=== PATIENT | female | born 1935 | race Caucasian/White ===

== ENCOUNTER 2017-08-19 09:28 | Emergency (ER) | payer BC ==
--- NOTE | 2017-08-19 09:45 | EDM.PDOC ---
ED HPI GENERAL MEDICAL PROBLEM - General Chief Complaint: Cardiovascular Problem Stated Complaint: BP HIGH Time Seen by Provider: 08/19/17 09:45 Source of Information: Reports: Patient History Limitations: Reports: No Limitations - History of Present Illness INITIAL COMMENTS - FREE TEXT/NARRATIVE: History of present illness: []Patient had diarrhea 2 nights ago into yesterday without fevers or vomiting. 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 A coworker took her blood pressure and she was found to be hypertensive. She was told to come to the ER to be evaluated. She states her dizziness was lightheaded and brief and has not recurred. She denies any headache, visual changes, weakness or numbness or tingling. Review of systems: As per history of present illness and below otherwise all systems reviewed and negative. Past medical history: As per history of present illness and as reviewed below otherwise noncontributory. Surgical history: As per history of present illness and as reviewed below otherwise noncontributory. Social history: No reported history of drug or alcohol abuse. Family history: As per history of present illness and as reviewed below otherwise noncontributory. Physical exam: General: Well developed, well nourished in NAD HEENT: Atraumatic, normocephalic, pupils reactive, negative for conjunctival pallor or scleral icterus, mucous membranes moist, throat clear, neck supple, nontender, trachea midline. Lungs: Clear to auscultation, breath sounds equal bilaterally, chest nontender. Heart: S1S2, regular, negative for clicks, rubs, or JVD. Abdomen: Soft, nondistended, nontender. Negative for masses or hepatosplenomegaly. Negative for costovertebral tenderness. Pelvis: Stable nontender. Genitourinary: Deferred. Rectal: Deferred. Extremities: Atraumatic, negative for cords or calf pain. Neurovascular unremarkable. Neuro: Awake, alert, oriented. Cranial nerves II through XII unremarkable. Cerebellum unremarkable. Motor and sensory unremarkable throughout. Exam nonfocal. Diagnostics: []EKG unchanged normal sinus rhythm no acute ischemic changes, chest x-ray is negative, CBC normal, chemistries normal, troponin is negative, UA is negative Therapeutics: []Patient was observed blood pressure decreased spontaneously Impression: []Uncontrolled high blood pressure causing dizziness, Plan: []Follow-up with regular physician continue regular meds return if symptoms worsen or change Definitive disposition and diagnosis as appropriate pending reevaluation and review of above. - Related Data Allergies Allergy/AdvReac Type Severity Reaction Status Date / Time atorvastatin [From Lipitor] Allergy Weakness Verified 08/19/17 09:38 Home Meds: Home Meds Atenolol 25 mg PO DAILY 11/06/15 [History] Losartan/Hydrochlorothiazide [Losartan-HCTZ 50-12.5 MG] 1 each PO DAILY [History] Pravastatin [Pravachol] 20 mg PO DAILY 11/06/15 [History] Aspirin 81 mg PO DAILY 08/19/17 [History] Calcium Carbonate [Calcium] 1 tab PO DAILY 08/19/17 [History] Past Medical History HEENT History: Reports: Impaired Vision Cardiovascular History: Reports: High Cholesterol, Hypertension Respiratory History: Reports: None Gastrointestinal History: Reports: None Genitourinary History: Reports: None CLINIC COORDINATOR History: Reports: None Musculoskeletal History: Reports: None Neurological History: Reports: None Psychiatric History: Reports: None Endocrine/Metabolic History: Reports: None Hematologic History: Reports: None Immunologic History: Reports: None Oncologic (Cancer) History: Reports: Breast Dermatologic History: Reports: None - Infectious Disease History Infectious Disease History: Reports: Chicken Pox, Measles, Mumps - Past Surgical History Head Surgeries/Procedures: Reports: None HEENT Surgical History: Reports: None Cardiovascular Surgical History: Reports: None Respiratory Surgical History: Reports: None GI Surgical History: Reports: None Female Surgical History: Reports: Hysterectomy Endocrine Surgical History: Reports: None Neurological Surgical History: Reports: None Musculoskeletal Surgical History: Reports: Knee Replacement Oncologic Surgical History: Reports: Mastectomy Dermatological Surgical History: Reports: None Social & Family History - Family History Family Medical History: Noncontributory - Tobacco Use Smoking Status *Q: Never Smoker Second Hand Smoke Exposure: No - Caffeine Use Caffeine Use: Reports: Coffee - Recreational Drug Use Recreational Drug Use: No ED ROS GENERAL - Review of Systems Review Of Systems: See Below (See history of present illness) ED EXAM, GENERAL - Physical Exam Exam: See Below (See history of present illness) Course - Vital Signs Last Recorded V/S: Last Vital Signs Temp 97.6 F 08/19/17 09:39 Pulse 80 08/19/17 10:55 Resp 16 08/19/17 10:55 BP 144/63 H 08/19/17 10:55 Pulse Ox 95 08/19/17 10:55 - Orders/Labs/Meds Orders: Active Orders 24 hr Category Date Time Status EKG Documentation Completion [RC] STAT Care 08/19/17 09:48 Active UA W/MICROSCOPIC [URIN] Stat Lab 08/19/17 11:00 Ordered Sodium Chloride 0.9% [Saline Flush] Med 08/19/17 09:48 Active 10 ml FLUSH ASDIRECTED PRN Sodium Chloride 0.9% [Saline Flush] Med 08/19/17 09:48 Active 2.5 ml FLUSH ASDIRECTED PRN Saline Lock Insert [OM.PC] Stat Oth 08/19/17 09:48 Ordered Medication Orders Sodium Chloride (Saline Flush) 10 ml FLUSH ASDIRECTED PRN PRN Reason: Keep Vein Open Sodium Chloride (Saline Flush) 2.5 ml FLUSH ASDIRECTED PRN PRN Reason: Keep Vein Open Labs: Laboratory Tests 08/19/17 08/19/17 08/19/17 Range/Units 10:15 10:15 11:00 WBC 7.65 (4.0-11.0) K/uL RBC 5.05 (4.30-5.90) M/uL Hgb 15.1 (12.0-16.0) g/dL Hct 44.8 (36.0-46.0) % MCV 88.7 (80.0-98.0) fL MCH 29.9 (27.0-32.0) pg MCHC 33.7 (31.0-37.0) g/dL RDW Std Deviation 44.6 (28.0-62.0) fl RDW Coeff of Hal 14 (11.0-15.0) % Plt Count 208 (150-400) K/uL MPV 11.00 (7.40-12.00) fL Neut % (Auto) 76.4 (48.0-80.0) % Lymph % (Auto) 16.1 (16.0-40.0) % [place] % (Auto) 6.7 (0.0-15.0) % Eos % (Auto) 0.3 (0.0-7.0) % Baso % (Auto) 0.5 (0.0-1.5) % Neut # (Auto) 5.9 H (1.4-5.7) K/uL Lymph # (Auto) 1.2 (0.6-2.4) K/uL Wilcox # (Auto) 0.5 (0.0-0.8) K/uL Eos # (Auto) 0.0 (0.0-0.7) K/uL Baso # (Auto) 0.0 (0.0-0.1) K/uL Nucleated RBC % 0.0 /100WBC Nucleated RBCs # 0 K/uL Sodium 143 (136-145) mmol/L Potassium 3.7 (3.5-5.1) mmol/L Chloride 103 (98-107) mmol/L Carbon Dioxide 28.7 (21.0-32.0) mmol/L BUN 23 H (7.0-18.0) mg/dL Creatinine 1.0 (0.6-1.0) mg/dL Est Cr Clr Drug Dosing 36.81 mL/min Estimated GFR (MDRD) 53.0 ml/min Glucose 140 H (74-106) mg/dL Calcium 9.1 (8.5-10.1) mg/dL Total Bilirubin 0.7 (0.2-1.0) mg/dL AST 20 (15-37) IU/L ALT 18 (14-63) IU/L Alkaline Phosphatase 63 (46-116) U/L Troponin I < 0.050 (0.000-0.056) ng/mL Total Protein 7.2 (6.4-8.2) g/dL Albumin 4.2 (3.4-5.0) g/dL Globulin 3.0 (2.0-3.5) g/dL Albumin/Globulin Ratio 1.4 (1.3-2.8) Urine Color YELLOW Urine Appearance CLEAR Urine pH 5.5 (5.0-8.0) Ur Specific [place] >= 1.030 (1.001-1.035) Urine Protein NEGATIVE (NEGATIVE) mg/dL Urine Glucose (UA) NEGATIVE (NEGATIVE) mg/dL Urine Ketones TRACE H (NEGATIVE) mg/dL Urine Occult Blood NEGATIVE (NEGATIVE) Urine Nitrite NEGATIVE (NEGATIVE) Urine Bilirubin NEGATIVE (NEGATIVE) Urine Urobilinogen 0.2 (<2.0) EU/dL Ur Leukocyte Esterase NEGATIVE (NEGATIVE) Urine RBC 0-1 (0-2/HPF) Urine WBC 0-1 (0-5/HPF) Ur Epithelial Cells FEW (NONE-FEW) Calcium Oxalate Crystal FEW (NEGATIVE) Urine Bacteria FEW (NEGATIVE) Hyaline Casts 5-10 (0-2/LPF) Urine Mucus MODERATE (NONE-MOD) Meds: Medications Generic Name Dose Route Start Last Admin Trade Name Freq PRN Reason Stop Dose Admin Sodium Chloride 10 ml 08/19/17 09:48 Saline Flush FLUSH ASDIRECTED PRN Keep Vein Open Sodium Chloride 2.5 ml 08/19/17 09:48 Saline Flush FLUSH ASDIRECTED PRN Keep Vein Open Discontinued Medications Generic Name Dose Route Start Last Admin Trade Name Freq PRN Reason Stop Dose Admin Aspirin 324 mg 08/19/17 09:48 08/19/17 10:12 Aspirin PO 08/19/17 09:49 324 mg ONETIME ONE Administration Nitroglycerin 0.4 mg 08/19/17 09:48 Nitrostat SL 08/19/17 09:49 ONETIME ONE Departure - Departure Time of Disposition: 11:25 Disposition: Home, Self-Care 01 Condition: Good Clinical Impression: Dehydration, Dizziness, Uncontrolled hypertension Referrals: Ranulfo Zaldivar MD [Primary Care Provider] - Forms: ED Department Discharge Additional Instructions: The following information is given to patients seen in the emergency department who are being discharged to home. This information is to outline your options for follow-up care. We provide all patients seen in our emergency department with a follow-up referral. The need for follow-up, as well as the timing and circumstances, are variable depending upon the specifics of your emergency department visit. If you don't have a primary care physician on staff, we will provide you with a referral. We always advise you to contact your personal physician following an emergency department visit to inform them of the circumstance of the visit and for follow-up with them and/or the need for any referrals to a consulting specialist. The emergency department will also refer you to a specialist when appropriate. This referral assures that you have the opportunity for follow-up care with a specialist. All of these measure are taken in an effort to provide you with optimal care, which includes your follow-up. Under all circumstances we always encourage you to contact your private physician who remains a resource for coordinating your care. When calling for follow-up care, please make the office aware that this follow-up is from your recent emergency room visit. If for any reason you are refused follow-up, please contact the [facility] Emergency Department at and asked to speak to the emergency department charge nurse. [facility] [address] [place] [id number] - My Orders Last 24 Hours: My Active Orders 08/19/17 09:48 EKG Documentation Completion [RC] STAT Sodium Chloride 0.9% [Saline Flush] 10 ml FLUSH ASDIRECTED PRN Sodium Chloride 0.9% [Saline Flush] 2.5 ml FLUSH ASDIRECTED PRN Saline Lock Insert [OM.PC] Stat 08/19/17 11:00 UA W/MICROSCOPIC [URIN] Stat - Assessment/Plan Last 24 Hours: My Active Orders 08/19/17 09:48 EKG Documentation Completion [RC] STAT Sodium Chloride 0.9% [Saline Flush] 10 ml FLUSH ASDIRECTED PRN Sodium Chloride 0.9% [Saline Flush] 2.5 ml FLUSH ASDIRECTED PRN Saline Lock Insert [OM.PC] Stat 08/19/17 11:00 UA W/MICROSCOPIC [URIN] Stat
[2017-08-19] MEDS ORDERED: Aspirin 81 MG Tab.Chew PO ONE (09:48)
[2017-08-19] MEDS ORDERED: Sodium Chloride 0.9% 10 ML Syringe FLUSH PRN (09:48)
[2017-08-19] MEDS ORDERED: Sodium Chloride 0.9% 2.5 ML Syringe FLUSH PRN (09:48)
[2017-08-19] MEDS ORDERED: Nitroglycerin 0.4 MG Tab.SL SL ONE (09:48)
--- NOTE | 2017-08-19 10:35 | CR ---
EXAMINATION: Portable chest radiograph. HISTORY: Dizziness. COMPARISON: 11/06/2015. FINDINGS: The trachea is midline. The cardiomediastinal silhouette is within normal limits. No pulmonary infilt rates, effusions or pneumothorax. Right apical scarring is noted. Mild hyperinflation and interstitia l prominence. Osseous structures appear unremarkable. IMPRESSION: No acute cardiopulmonary process.
[2017-08-19 11:03] LABS: CHLORIDE,CL 103 mmol/L (98-107); SODIUM,NA 143 mmol/L (136-145)
[2017-08-19 11:42] VITALS: BP 130/57
== END 2017-08-19 11:50 | disposition home or self-care (01) ==
LOC: MW.ED 09:28
DX: I10 Essential (primary) hypertension (principal); E86.0 Dehydration; E78.00 Pure hypercholesterolemia, unspecified; Z88.8 Allergy status to other drugs, medicaments and biological substances; Z79.899 Other long term (current) drug therapy; Z79.82 Long term (current) use of aspirin
CPT/HCPCS: 36415; 71045; 80053; 81001; 84484; 85025; 93005; 99284; A9270; 99283

== ENCOUNTER 2019-03-07 11:32 | Emergency (ER) | payer BC ==
[2019-03-07] MEDS ORDERED: predniSONE 10 MG Tab PO ONE (12:11)
--- NOTE | 2019-03-07 12:41 | EDM.PDOC ---
ED HPI GENERAL MEDICAL PROBLEM - General Chief Complaint: Lower Extremity Injury/Pain Stated Complaint: SEVERE PAIN IN R LEG Time Seen by Provider: 03/07/19 12:04 Source of Information: Reports: Patient History Limitations: Reports: No Limitations - History of Present Illness INITIAL COMMENTS - FREE TEXT/NARRATIVE: This 83 year old female presents to the ED with a chief complaint of right low back to hip pain over the past week. The daughter states that her gait is off due to a painful arthritic right knee and it forces her to put weight on her right leg. She is status post right TKR years ago. She also complains of pain coming from her right low back to the back of her right leg. She denies any other symptoms at this time. Onset: Gradual (one week) Duration: Intermittent Location: Reports: Back, Lower Extremity, Right Quality: Reports: Dull, Sharp Severity: Mild (to moderate) Improves with: Reports: Medication (alieve) Worsens with: Reports: Movement right hip Pain Score (Numeric/FACES): 4 - Related Data Allergies Allergy/AdvReac Type Severity Reaction Status Date / Time atorvastatin [From Lipitor] Allergy Weakness Verified 08/19/17 09:38 doxycycline Allergy Rash Verified 03/07/19 11:42 Home Meds: Home Meds Pravastatin [Pravachol] 20 mg PO DAILY 11/06/15 [History] atenoloL [Atenolol] 50 mg PO DAILY 11/06/15 [History] Aspirin 81 mg PO DAILY 08/19/17 [History] Acetaminophen [Tylenol] 1 tab PO ASDIRECTED 03/07/19 [History] Amoxicillin 500 mg PO TID 03/07/19 [History] Fluticasone Propionate [Flonase Allergy Relief] 1 spray ANA LAURA ASDIRECTED 03/07/19 [History] Loratadine [Claritin] 10 mg PO ASDIRECTED 03/07/19 [History] Losartan/Hydrochlorothiazide [Losartan-HCTZ 100-25 MG] 1 tab PO DAILY 03/07/19 [ History] predniSONE [Prednisone] 10 mg PO ASDIRECTED 3 Days #6 tab.ds.pk 03/07/19 [Rx] Past Medical History HEENT History: Reports: Impaired Vision Cardiovascular History: Reports: High Cholesterol, Hypertension Respiratory History: Reports: None Gastrointestinal History: Reports: None Genitourinary History: Reports: None 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 Musculoskeletal History: Reports: None Neurological History: Reports: None Psychiatric History: Reports: None Endocrine/Metabolic History: Reports: None Hematologic History: Reports: None Immunologic History: Reports: None Oncologic (Cancer) History: Reports: Breast Dermatologic History: Reports: None - Infectious Disease History Infectious Disease History: Reports: Chicken Pox, Measles, Mumps - Past Surgical History Head Surgeries/Procedures: Reports: None HEENT Surgical History: Reports: None Cardiovascular Surgical History: Reports: None Respiratory Surgical History: Reports: None GI Surgical History: Reports: None Female Surgical History: Reports: Hysterectomy Endocrine Surgical History: Reports: None Neurological Surgical History: Reports: None Musculoskeletal Surgical History: Reports: Knee Replacement Oncologic Surgical History: Reports: Mastectomy Dermatological Surgical History: Reports: None Social & Family History - Family History Family Medical History: Noncontributory - Tobacco Use Smoking Status *Q: Never Smoker - Caffeine Use Caffeine Use: Reports: Coffee - Recreational Drug Use Recreational Drug Use: No Review of Systems - Review of Systems Review Of Systems: See Below Constitutional: Reports: No Symptoms Eyes: Reports: No Symptoms Ears: Reports: No Symptoms Nose: Reports: No Symptoms Mouth/Throat: Reports: No Symptoms Respiratory: Reports: No Symptoms Cardiovascular: Reports: No Symptoms GI/Abdominal: Reports: No Symptoms Genitourinary: Reports: No Symptoms Musculoskeletal: Reports: Back Pain (as noted above), Other (right leg pain as noted above) Neurological: Reports: Other (pain down the back of right leg) ED EXAM, GENERAL - Physical Exam Exam: See Below Exam Limited By: No Limitations General Appearance: Alert, WD/WN, No Apparent Distress Ears: Normal External Exam, Normal Canal, Hearing Grossly Normal, Normal TMs Nose: Normal Inspection, Normal Mucosa, No Blood Throat/Mouth: Normal Inspection, Normal Lips, Normal Teeth, Normal Gums, Normal Oropharynx, Normal Voice, No Airway Compromise Head: Atraumatic, Normocephalic Neck: Normal Inspection, Supple, Non-Tender, Full Range of Motion Respiratory/Chest: No Respiratory Distress, Lungs Clear, Normal Breath Sounds, No Accessory Muscle Use, Chest Non-Tender Cardiovascular: Normal Peripheral Pulses, Regular Rate, Rhythm, No Edema, No Gallop, No JVD, No Murmur, No Rub Peripheral Pulses: 3+: Carotid (L), Carotid (R), Femoral (L), Femoral (R), Dorsalis Pedis (L), 4+: Dorsalis Pedis (R) GI/Abdominal: Normal Bowel Sounds, Soft, Non-Tender, No Organomegaly, No Distention, No Abnormal Bruit, No Mass Back Exam: Normal Inspection, Decreased Range of Motion (In all planes with terminal pain.), Other (Tenderness is noted over the right PSI joint. ). No: CVA Tenderness (L), CVA Tenderness (R), Muscle Spasm, Paraspinal Tenderness Extremities: Normal Inspection, Limited Range of Motion (due to pain in the PSI joint. ), Other (old surgical scar is noted over the right knee which is consistent with TKR). No: No Pedal Edema, Slow Capillary Refill, Joint Swelling Neurological: Alert, Oriented, CN II-XII Intact, Normal Cognition, Normal Gait, Normal Reflexes, No Motor/Sensory Deficits Psychiatric: Normal Affect, Normal Mood Skin Exam: Warm, Dry, Intact, Normal Color, No Rash Lymphatic: No Adenopathy Course - Vital Signs Text/Narrative:: I have reviewed the patients CT of the lower back and pelvis which is negative for acute pathology. Possible disc herniation T12-L1. I discussed this with the patient and her daughter. She will be discharged on Prednisone and heat application to the lower back area. The patient agrees with the discharge plan. Last Recorded V/S: Last Vital Signs Temp 97.0 F 03/07/19 13:28 Pulse 80 03/07/19 13:28 Resp 15 03/07/19 11:43 BP 165/76 H 03/07/19 13:28 Pulse Ox 96 03/07/19 13:28 - Orders/Labs/Meds Meds: Medications Discontinued Medications Generic Name Dose Route Start Last Admin Trade Name Thelma PRN Reason Stop Dose Admin Prednisone 40 mg 03/07/19 12:11 03/07/19 12:52 Prednisone PO 03/07/19 12:12 40 mg ONETIME ONE Administration Departure - Departure Time of Disposition: 14:03 Disposition: Home, Self-Care 01 Condition: Good Clinical Impression: Sacro ilial pain - Discharge Information *PRESCRIPTION DRUG MONITORING PROGRAM REVIEWED*: Yes *COPY OF PRESCRIPTION DRUG MONITORING REPORT IN PATIENT LESLY: Yes Instructions: Sacroiliac Joint Dysfunction Referrals: Ranulfo Zaldivar MD [Primary Care Provider] - Forms: ED Department Discharge Additional Instructions: Rest for the next 24 hours. Try to lay on a firm mattress. This will help your back pain as well as your PSI pain. Warm compresses to the lower back for the next 24-48 hours (30 minutes on and one hour off while awake). Take the Prednisone as directed. Follow up with your PCP in the next two to three days. No work for three days. Return to the ED if your condition gets worse. The following information is given to patients seen in the emergency department who are being discharged to home. This information is to outline your options for follow-up care. We provide all patients seen in our emergency department with a follow-up referral. The need for follow-up, as well as the timing and circumstances, are variable depending upon the specifics of your emergency department visit. If you don't have a primary care physician on staff, we will provide you with a referral. We always advise you to contact your personal physician following an emergency department visit to inform them of the circumstance of the visit and for follow-up with them and/or the need for any referrals to a consulting specialist. The emergency department will also refer you to a specialist when appropriate. This referral assures that you have the opportunity for follow-up care with a specialist. All of these measure are taken in an effort to provide you with optimal care, which includes your follow-up. Under all circumstances we always encourage you to contact your private physician who remains a resource for coordinating your care. When calling for follow-up care, please make the office aware that this follow-up is from your recent emergency room visit. If for any reason you are refused follow-up, please contact the [facility] Emergency Department at and asked to speak to the emergency department charge nurse. Sepsis Event Note - Evaluation Sepsis Screening Result: No Definite Risk - Focused Exam Vital Signs: Vital Signs Temp Pulse Resp BP Pulse Ox 03/07/19 13:28 97.0 F 80 165/76 H 96 03/07/19 11:43 97.3 F 98 15 186/86 H 99 Date Exam was Performed: 03/07/19 Time Exam was Performed: 14:00
--- NOTE | 2019-03-07 13:37 | CT ---
CT abdomen and pelvis Technique: Multiple axial sections were obtained from above the dome of the diaphragm inferiorly through the pubic symphysis. Intravenous and oral contrast not utilized. Comparison: No prior abdominal imaging. Findings: Visualized lung bases show nothing acute. Small hiatal hernia is noted. Low density lesion is noted within the right lobe of the liver measuring about 9 mm which is most likely due to a small cyst. No additional abnormality appreciated within the liver. Spleen appears normal. Adrenal glands show no nodule. Pancreas is within normal limits. Gallbladder contains no calcified gallstones. Kidneys show no hydronephrosis or mass. Aorta shows atherosclerotic calcification which continues into the iliac vessels. No aneurysm is seen. No retroperitoneal adenopathy is appreciated. Appendix is seen which is normal in size. No pelvic mass or adenopathy is identified. Ureters show no dilatation. No abnormal calcifications are seen along the course of the ureters. Bone window settings were reviewed which shows diffuse degenerative change within the spine. No acute osseous finding is appreciated. Impression: 1. Diffuse degenerative change within the spine. 2. Small cyst believed to be present within the right lobe of the liver. 3. Small hiatal hernia. 4. Nothing acute is appreciated on noncontrast CT study of the abdomen and pelvis. Diagnostic code #2 This report was dictated in [place] Standard Time
--- NOTE | 2019-03-07 13:37 | CT ---
CT lumbar spine Technique: Multiple axial sections were obtained from the top T11 inferiorly through the L5-S1 disc. Reconstructed sagittal and coronal images were reviewed. Comparison: No prior lumbar spine imaging is available. Findings: T11-12: Slight posterior disc space narrowing is seen. Posterior disc is maintained. No central canal stenosis or neural foraminal stenosis is seen. T12-L1: Mild circumferential disc bulge is seen. Posterior disc shows a possible disc herniation posteriorly to the right of midline. No central canal stenosis or neural foraminal stenosis is seen. L1-2: Severe disc space narrowing is noted with endplate sclerosis and vacuum phenomena. Circumferential disc bulge is noted. Posterior disc appears to maintain a concave margin. No central canal stenosis is seen. Bilateral neural foraminal narrowing is seen but nerve roots appear to exit without definite compromise. Moderate degenerative apophyseal change is seen. L2-3: Severe disc space narrowing is noted within endplate sclerosis. Moderate degenerative apophyseal change is seen. Circumferential disc bulge is noted. Epidural air is seen on the right side within the neural foramina compatible with annular rupture. Minimal central canal stenosis is noted. Bilateral neural foraminal stenosis is seen. Nerve roots exit without definite compromise. L3-4: Severe disc space narrowing noted. Mild central canal stenosis is seen. Bilateral neural foraminal stenosis is noted. Neural foramina appear to be patent with the nerve roots exit. Moderate degenerative apophyseal change is seen. L4-5: Vacuum disc phenomena seen with posterior disc space narrowing. Circumferential disc bulge is noted. Mild central canal stenosis is seen. Right neural foramina is patent. Narrowing of the left neural foramina is seen with probable compromise by the exiting left L4 nerve root. L5-S1: Severe degenerative apophyseal change is noted. No central canal stenosis is noted. Left neural foramina is patent where the nerve root exits. Mild right-sided neural foraminal stenosis is seen with slight compromise on the right L5 nerve root. No fracture is seen. Impression: 1. Diffuse degenerative change as noted above. 2. Possible disc herniation at T12-L1. MRI would be needed to confirm. 3. Nothing acute is seen. Diagnostic code #3 This report was dictated in [place] Standard Time
[2019-03-07 14:23] VITALS: BP 167/76; PULSE 81
== END 2019-03-07 14:38 | disposition home or self-care (01) ==
LOC: MW.ED 11:32
DX: M53.3 Sacrococcygeal disorders, not elsewhere classified (principal); I10 Essential (primary) hypertension; Z79.82 Long term (current) use of aspirin; Z79.899 Other long term (current) drug therapy; Z90.710 Acquired absence of both cervix and uterus; Z88.8 Allergy status to other drugs, medicaments and biological substances
CPT/HCPCS: 72131; 74176; 99283; A9270